=== PATIENT | female | born 1945 | race Caucasian/White ===

== ENCOUNTER 2022-01-13 13:42 | Emergency (ER) | payer MEDICARE, MEDICAID ==
[2022-01-13 14:00] VITALS: BP 126/59; PULSE 84
[2022-01-13] MEDS ORDERED: Diphtheria,Pertussis(Acell),Tetanus Vaccine 0.5 ML Syringe IM ONE (14:25)
[2022-01-13] MEDS ORDERED: Bacitracin Oint 1 GM U/D Packet TOP ONE (16:48)
== END 2022-01-13 16:55 | disposition home or self-care (01) ==
LOC: JP.ED 13:42
DX: S00.33XA Contusion of nose, initial encounter (principal); S00.12XA Contusion of left eyelid and periocular area, initial encounter; E78.00 Pure hypercholesterolemia, unspecified; I10 Essential (primary) hypertension; Z88.0 Allergy status to penicillin; Z88.8 Allergy status to other drugs, medicaments and biological substances; Z23 Encounter for immunization; Z79.899 Other long term (current) drug therapy; W00.0XXA Fall on same level due to ice and snow, initial encounter
CPT/HCPCS: 70486; 70486-26; 90471; 90715; 99282; 99283-25

== ENCOUNTER 2022-04-21 17:23 | Emergency (ER) | payer MEDICARE, MEDICAID ==
[2022-04-21 17:54] VITALS: BP 131/68; PULSE 104
[2022-04-21 18:51] LABS: ESTIMATED GFR 59 mL/min (>60)
[2022-04-21] MEDS ORDERED: Fluconazole 150 MG Tab PO ONE (19:23)
[2022-04-21] MEDS ORDERED: Cephalexin 250 MG Cap PO ONE (19:23)
== END 2022-04-21 20:56 | disposition home or self-care (01) ==
LOC: JP.ED 17:23
DX: B37.2 Candidiasis of skin and nail (principal); L89.892 Pressure ulcer of other site, stage 2; N39.0 Urinary tract infection, site not specified; I10 Essential (primary) hypertension; E78.00 Pure hypercholesterolemia, unspecified; Z20.822 Contact with and (suspected) exposure to COVID-19; Z79.899 Other long term (current) drug therapy; Z88.0 Allergy status to penicillin; Z88.8 Allergy status to other drugs, medicaments and biological substances
CPT/HCPCS: 36415; 80053; 81001; 85025; 86140; 87086; 99283; 99284; A9270-GY; U0002

== ENCOUNTER 2022-04-22 16:20 | Emergency (ER) | payer MEDICARE, MEDICAID ==
[2022-04-22] MEDS ORDERED: cefTRIAXone 1 GM in Sodium Chloride 0.9% 50 ML IV ONE (16:49)
[2022-04-22] MEDS ORDERED: Sodium Chloride 0.9% 10 ML Syringe FLUSH PRN (16:49)
[2022-04-22] MEDS ORDERED: Ondansetron 4 MG/2 ML SDV IVPUSH ONE (16:50)
[2022-04-22] MEDS ORDERED: Sodium Chloride 0.9% 1,000 ML IV SCH ×2 (17:30→20:15)
[2022-04-22 21:00] VITALS: BP 141/59; PULSE 78
[2022-04-22 21:13] LABS: ESTIMATED GFR 59 mL/min (>60)
== END 2022-04-22 23:29 ==
LOC: JP.ED 16:20
DX: N30.01 Acute cystitis with hematuria (principal); F03.90 Unspecified dementia, unspecified severity, without behavioral disturbance, psychotic disturbance, mood disturbance, and anxiety; L89.622 Pressure ulcer of left heel, stage 2; B37.2 Candidiasis of skin and nail; R41.0 Disorientation, unspecified; Z88.0 Allergy status to penicillin; Z88.8 Allergy status to other drugs, medicaments and biological substances; Z86.73 Personal history of transient ischemic attack (TIA), and cerebral infarction without residual deficits
CPT/HCPCS: 36415; 70450; 80053; 82140; 82803; 83605; 85025; 96361; 96365; 96375; 99285; J0696; J2405; J3490; J7030